=== PATIENT | female | born 1985 | race Caucasian/White ===

== ENCOUNTER 2017-12-16 18:23 | Emergency (ER) | payer OTHER, SELFPAY ==
[2017-12-16 18:24] VITALS: BP 128/78; PULSE 86; RESP 16; TEMP 36.6; O2SAT 100; BMI 22.4
--- NOTE | 2017-12-16 18:33 | ED.DCSUM_ITS ---
- ER Visit Summary Date of Service: 12/16/17 Chief Complaint: Urinary frequency, dysuria History of Present Illness: The patient is a 31 F ends to the emergency department with urinary frequency and dysuria. Patient's of the symptoms for the past 3 days. She states she is to get frequent UTIs but has not in a while. She has been taking [id number] cranberry with little relief. She describes pain with urination and increased frequency. She has had some mild low back pain. She denies any fevers or chills. She denies any nausea or vomiting. She denies any other systemic symptoms. Physical Examination: Vital signs reviewed General: Well-nourished, well-developed Head: Normocephalic, atraumatic Eyes: Pupils equal and reactive, extraocular muscles intact Neck, supple, no lymphadenopathy Heart: Regular rate and rhythm Respiratory: No distress, clear bilaterally Abdomen: Soft, nontender, nondistended, no peritoneal signs Back: Nontender Extremities: Nontender, no edema, no cords Skin: Normal color no rash Neuro: Alert and oriented, no focal or lateralizing deficits Test Results: [] Emergency Department Course and Treatment: She presents with dysuria. Urine does show evidence of infection. Culture was added. I did review her prior records and she did have E. coli sensitive to Cipro. She will be started on this. She will be discharged home. Treatment Plan: [] Disposition: Charge Impression:. Acute cystitis This note was generated with [employer] dictation software. It may contain incorrect words, spelling, and punctuation that were not noted in review of the chart prior to signing ED Disposition - Plan for ED Patient: Chief Complaint: Complaint Instructions: ED UTI Cystitis Female Prescriptions: Ciprofloxacin [Cipro] 500 mg PO BID #14 tab Referrals: NOT,DEFINED [NON-STAFF] -
[2017-12-16 18:37] LABS: Mucous, Urine 0 SEEN /hpf (<or=2+)
--- NOTE | 2017-12-16 18:50 | ED.RN ---
LAB CALLED, STATES THEY DO NOT HAVE A YELLOW URINE TUBE, AND IT IS NEEDED FOR THE PREG TEST
[2017-12-16 18:51] LABS: Color, Urine Yellow (Yellow); Glucose, Dipstick Normal (Normal); Ketone-Dipstick Negative (Negative); Leukocyte Esterase-Dipstick 500 /ul (Negative); Nitrite-Dipstick Negative (Negative); Occult Blood-Urine 250 /ul (Negative); Protein-Dipstick 30 mg/dl (Negative); Urine Bilirubin Dipstick Negative (Negative); Urine Clarity Cloudy (Clear); Urine Urobilinogen Normal (Normal); Urine pH 6.5 (5.0 - 8.0)
[2017-12-16 19:10] LABS: Bacteria RARE /hpf (None Seen); Red Blood Cells-Urine > 100 SEEN /hpf (0-5); Squamous Epithelial Cells - UA 0-5 SEEN /hpf (5-10); White Blood Cells >100 SEEN /hpf (0-5)
[2017-12-16 19:28] VITALS: PULSE 74; RESP 18
[2017-12-16] MEDS: Ciprofloxacin 500 MG Tablet PO (19:29)
== END 2017-12-16 19:29 | disposition home or self-care (01) ==
PROVIDERS: Emergency Provider Emergency Medicine
DX: N30.00 Acute cystitis without hematuria (principal); Z87.440 Personal history of urinary (tract) infections
CPT/HCPCS: 81001; 87086; 87088; 99283

== ENCOUNTER 2018-02-28 17:54 | Emergency (ER) | payer OTHER, SELFPAY ==
--- NOTE | 2018-02-28 17:57 | NURSING ---
NO OLD EKGS
[2018-02-28 17:58] VITALS: BP 142/86; PULSE 96; RESP 14; TEMP 36.3; BMI 22.8
--- NOTE | 2018-02-28 18:01 | EKG12_ITS ---
Test Reason : Blood Pressure : / mmHG Vent. Rate : 089 BPM Atrial Rate : 089 BPM P-R Int : 124 ms QRS Dur : 086 ms QT Int : 372 ms P-R-T Axes : 068 068 056 degrees QTc Int : 452 ms Normal sinus rhythm Normal ECG Confirmed by YASSINE MARAVILLA, PETER ([id number]), editor continuity and script MICHELLE ELLIOTT ([id number]) on 03/03/2018 1:25:27 PM Referred By: JENNY Confirmed By:PETER METZGER MD
--- NOTE | 2018-02-28 18:10 | RAD_ITS ---
STUDY: X-RAY CHEST REASON FOR EXAM: Female, 32 years old. Chest pain. TECHNIQUE: AP portable COMPARISON: None. FINDINGS: The lungs are clear and expanded. There is no demonstrated pleural abnormality. Normal size heart. Normal mediastinum and ileana. Normal visualized pulmonary arteries. Normal visualized aortic arch and descending thoracic aorta. Normal visualized thoracic spine. Normal visualized ribs, clavicles, and shoulders. There is no demonstrated abnormality of the visualized soft tissue structures of the upper abdomen. RAD/Chest 1 View (Portable) IMPRESSION: No acute cardiopulmonary process. Electronically Signed: Darshana Knight MD at 18:42 EDT Tel , Service support ,
[2018-02-28] MEDS: 0.9% Normal Saline 1,000 ML 1000 ML IV (18:25)
[2018-02-28 18:33] LABS: Absolute Lymphocyte Count 4.84 X10^3/ul (0.83-4.51); Absolute Neutrophil Count 7.6 X10^3/uL (2.0-7.7); Basophil# 0.03 X10^3/uL; Basophil% 0.2 % (0-1); Eosinophil# 0.36 X10^3/uL; Eosinophils% 2.6 % (0-5); Hematocrit 40.9 % (37-47); Lymphocyte # 4.84 X10^3/ul (4.0); Lymphocyte % 35.4 % (19-41); Mean Corpuscular Volume 87.4 fL (81-99); Mean Platelet Vol. 11.5 fl (6.2-12.0); Monocyte# 0.84 X10^3/uL; Monocyte% 6.1 % (0-10); Neutrophil % 55.6 % (47-70); Platelet Count 242 K/mm3 (150-450); RBC Distribution Width CV 13.9 % (11.6-14.6); RBC Distribution Width SD 43.8 fl (35.1-43.9); Red Blood Count 4.68 M/mm3 (4.2-5.4); White Blood Count 13.7 K/mm3 (4.4-11.0)
[2018-02-28 18:34] LABS: Mean Corpuscular Hgb 29.9 pg (27.0-32.0)
[2018-02-28 18:35] LABS: Mean Corp Hgb Conc 34.2 g/gl (32-36); POSITIVE COUNT NO; POSITIVE DIFFERENTIAL NO; POSITIVE MORPHOLOGY NO
[2018-02-28 18:36] LABS: Anion Gap 7 (5-15); BUN 19 mg/dL (7-18); BUN/Creat Ratio 23.3 RATIO (10-20); Calcium,Total 8.8 mg/dL (8.5-10.1); Chloride 102 mmol/L (98-107); Creatinine, Serum 0.82 mg/dL (0.55-1.02); EST Glomerular Filtration Rate 87 mL/min (>60); Est Glom Filt Rate - Afr Amer 106 mL/min (>60); Estimated Creatinine Clearance 79.34 ml/min; Glucose 94 mg/dL (74-106); Potassium 3.2 mmol/L (3.5-5.1); Sodium Level 138 mmol/L (136-145); Thyroid Stim Hormone (TSH) 2.32 uIU/mL (0.358-3.74)
--- NOTE | 2018-02-28 18:47 | ED.VISSUMM ---
- ER Visit Summary Date of Service: 02/28/18 Chief Complaint: Palpitations History of Present Illness: The patient is a 32 F with no primary care physician. She reports she has palpitations began approximately 30 minutes ago. She reports that with the she is felt lightheaded and sweaty. She denies any chest pain. No shortness of breath. Review of systems: General: No fever, chills, cold sweats. Cardiovascular: No chest pain. Respiratory: No cough, shortness of breath, dyspnea on exertion. Gastrointestinal: No abdominal pain, nausea, vomiting, diarrhea, melena, or hematochezia. Genitourinary: No dysuria, frequency, hematuria. Skin: No rash. Neuro: No headache, numbness, weakness. Physical Examination: Vitals: Stable. Afebrile. General: Well-nourished and well-developed. Head: Normocephalic atraumatic. Neck: Supple, no lymphadenopathy. No JVD. Nontender. Cardiovascular: Regular rate and rhythm. No murmurs. Respiratory: No respiratory distress. Clear to auscultation bilaterally. Abdominal: Soft, nontender, nondistended, normal bowel sounds. No guarding, rebound, or peritoneal signs. Back: Nontender. Extremities: Nontender, no edema. Skin: Normal color, no rash. Neurologic: Alert and oriented ?3. Cranial nerves II through XII are intact. Normal strength and sensation. Psych: Normal affect. Test Results: EKG is sinus at 89 with no acute changes. Troponin is negative. test negative. Chem-7 is more for potassium 3.2 and BUN of 19. CBC is marked for white count of 13.7. TSH is normal. Chest x-ray is normal. Emergency Department Course and Treatment: Patient was given 1 L bolus of normal saline. She is resting comfortably. Treatment Plan: Patient will be discharged instructions to follow-up with Dr. Duvall as soon as possible for further evaluation. Return to the emergency department for any worsening symptoms. Disposition: To home in improved and stable condition. Impression: 1. Palpitations. This note was generated with [employer]com[employer] software. It may contain incorrect words, spelling, and punctuation that were not noted in review of the chart prior to signing ED Disposition - Plan for ED Patient: Disposition: Home or Assisted Living Chief Complaint: Palpitations Instructions: ED Palpitations Referrals: Sherie Duvall MD [STAFF PHYSICIAN] - As soon as possible
[2018-02-28 19:13] LABS: Pregnancy, Serum, hCG Quali. NEGATIVE Negative (0-9 Nonpreg)
[2018-02-28 19:43] VITALS: BP 124/88; PULSE 96; RESP 18; O2SAT 98
== END 2018-02-28 19:44 | disposition home or self-care (01) ==
LOC: ED 18:35
PROVIDERS: Emergency Provider Emergency Medicine
DX: R00.2 Palpitations (principal)
CPT/HCPCS: 71045; 80048; 84443; 84484; 84703; 85025; 93005; 96360; 99284; J7030

== ENCOUNTER → 2018-03-24 09:32 | Outpatient (CLI) | payer OTHER, SELFPAY ==
[2018-03-24 10:59] LABS: Anion Gap 9 (5-15); BUN 11 mg/dL (7-18); BUN/Creat Ratio 16.1 RATIO (10-20); Calcium,Total 8.4 mg/dL (8.5-10.1); Chloride 103 mmol/L (98-107); Creatinine, Serum 0.68 mg/dL (0.55-1.02); EST Glomerular Filtration Rate 107 mL/min (>60); Est Glom Filt Rate - Afr Amer 130 mL/min (>60); Glucose 81 mg/dL (74-106); Magnesium 2.1 mg/dL (1.6-2.6); Potassium 4.5 mmol/L (3.5-5.1); Sodium Level 141 mmol/L (136-145)
== END ==
PROVIDERS: Family Provider Internal Medicine; PCP Internal Medicine; Visit Provider Internal Medicine
DX: E87.6 Hypokalemia (principal)
CPT/HCPCS: 36415; 80048; 83735

== ENCOUNTER → 2018-05-05 12:40 | Outpatient (CLI) | payer OTHER, SELFPAY ==
--- NOTE | 2018-05-05 12:41 | ECHOD_ITS ---
Reason For Study: Palpitations Procedure This was a 2D Doppler, Color Flow transthoracic echocardiogram. The exam was of adequate technical quality. Exam performed in department. Left Ventricle Normal LV size. Left ventricular systolic function is normal. The estimated ejection fraction is 65 %. Normal diastology for age. No regional wall motion abnormalities noted. Right Ventricle Normal RV size. Normal systolic function. Atria Normal left atrium. Normal right atrium. No doppler evidence for ASD. Mitral Valve There is no mitral annular calcification. Mild diffuse mitral valve thickening. Trivial mitral valve insufficiency. Tricuspid Valve Normal tricuspid valve. Trivial tricuspid valve insufficiency. Right ventricular systolic pressure estimated to be 21 mmHg. Aortic Valve Trisinus/trileaflet aortic valve. Normal aortic valve. Pulmonic Valve The pulmonic valve is not well visualized. Trivial pulmonic valve insufficiency. Great Vessels Normal sized aortic root. Pericardium/Pleural No pericardial effusion. MMode/2D Measurements & Calculations LVIDd: 4.3 cm IVSd: 0.78 cm Ao root diam: 2.3 cm LVIDs: 3.1 cm LVPWd: 0.88 cm RVDd: 2.4 cm FS: 28.3 % LAV(MOD-bp): 22.4 ml LVAd ap4: 26.3 cm2 SV(MOD-sp4): 47.8 ml LAV(MOD-bp) Indexed: 14.4 ml/m2 EDV(MOD-sp4): 78.4 ml LAV(MOD-sp2): 28.3 ml EDV(sp4-el): 80.0 ml LAV(MOD-sp4): 17.0 ml LVAs ap4: 14.2 cm2 ESV(MOD-sp4): 30.6 ml ESV(sp4-el): 29.1 ml EF(MOD-sp4): 61.0 % EF(sp4-el): 63.7 % SV(sp4-el): 50.9 ml LA A4 area: 9.6 cm2 RA A4 area: 9.3 cm2 Doppler Measurements & Calculations MV E max trace: 76.7 cm/sec Lat Peak E' Trace: 14.1 cm/sec Med Peak E' Trace: 10.8 cm/sec MV A max trace: 53.5 cm/sec E/E' lat: 5.4 E/E' med: 7.1 MV E/A: 1.4 Ao V2 max: 125.4 cm/sec LV V1 max: 107.5 cm/sec PA V2 max: 84.0 cm/sec Ao max P.3 mmHg LV V1 max P.6 mmHg Ao V2 mean: 91.9 cm/sec Ao mean P.7 mmHg Ao V2 VTI: 27.0 cm TR max trace: 212.9 cm/sec TR max P.1 mmHg Interpretation Summary Left ventricular systolic function is normal. The estimated ejection fraction is 65 %. Mild diffuse mitral valve thickening. Trivial mitral valve insufficiency. Trivial tricuspid valve insufficiency. Trivial pulmonic valve insufficiency. Right ventricular systolic pressure estimated to be 21 mmHg. Normal diastology for age. Ordering Physician: Brian Esquivel Referring Physician: Eloina Rehman Performed By: Kayla Delgado, DIA, RVT
== END ==
PROVIDERS: Family Provider Internal Medicine; PCP Internal Medicine; Referring Provider Internal Medicine Cardiovascular Disease; Visit Provider Internal Medicine Cardiovascular Disease
DX: R00.0 Tachycardia, unspecified (principal); R00.2 Palpitations
CPT/HCPCS: 93306

== ENCOUNTER → 2020-04-12 | Outpatient (CLI) | payer OTHER, SELFPAY ==
[2020-04-12 14:11] VITALS: BMI 23.3
[2020-04-16 15:56] LABS: HPV APTIMA, High Risk Negative (Negative)
== END | disposition home or self-care (01) ==
LOC: LABSPEC 16:44
PROVIDERS: PCP Internal Medicine; Referring Provider Nurse Practitioner Women's Health; Visit Provider Nurse Practitioner Women's Health
DX: Z12.4 Encounter for screening for malignant neoplasm of cervix (principal)
CPT/HCPCS: 87624; 88175; G0145